=== PATIENT | male | born 1990 | race African-American/Black ===

== ENCOUNTER 2019-07-19 21:32 | Emergency (ER) | payer MEDICARE, OTHER ==
[~2019-07-19] VITALS: Ht 167.6 cm; Wt 81.6 kg
[~2019-07-19 21:32] MED LIST: CLIN150C14 PO; HYDR-3164 PO; SULF1TAB24 PO; TRAM-48 PO
[2019-07-19 21:44] VITALS: BP 161/113
--- NOTE | 2019-07-19 21:44 | PHYS DOC ---
Past Medical History Past Medical History: Other Additional Past Medical Histor: [facility] Past Surgical History: Other Additional Past Surgical Histo: hernia repair Alcohol Use: Occasionally Drug Use: None Adult General Chief Complaint Chief Complaint: SKIN PROBLEM HPI HPI Patient is a 28 year old male who presents to the ED today complaining of a pruritic rash to bilateral lower extremities that he noted 2 days ago after working in the yard. Review of Systems Review of Systems Constitutional: Denies fever or chills [] Musculoskeletal: Denies back pain or joint pain [] Integument: Reports pruritic rash to bilateral lower extremities Neurologic: Denies headache, focal weakness or sensory changes [] All other systems were reviewed and found to be within normal limits, except as documented in this note. Allergies Allergies Allergies Coded Allergies Type Severity Reaction Last Updated Verified No Known Drug Allergies 07/05/16 No Physical Exam Physical Exam Constitutional: Well developed, well nourished, no acute distress, non-toxic appearance. [] Skin: Warm, dry, bilateral lower extremities with mild amount of erythematous papular rash suspicious of insect bites Back: No tenderness, no CVA tenderness. [] Extremities: No tenderness, no cyanosis, no clubbing, ROM intact, no edema. [] Neurologic: Alert and oriented X 3, normal motor function, normal sensory function, no focal deficits noted. [] Psychologic: Affect normal, judgement normal, mood normal. [] EKG EKG [] Radiology/Procedures Radiology/Procedures [] Course & Med Decision Making Course & Med Decision Making Pertinent Labs and Imaging studies reviewed. (See chart for details) This is a 28-year-old male patient who presents to the ED today with a pruritic rash to bilateral lower extremities that began 2 days ago after working in the yard, rash suspicious of insect bites. Discharged with instructions to use [id number] Benadryl and hydrocortisone cream. Follow-up with PCP in 1-2 weeks as needed. Dragon Disclaimer Dragon Disclaimer This electronic medical record was generated, in whole or in part, using a voice recognition dictation system. Departure Departure Impression: Primary Impression: Insect bite Disposition: 01 HOME, SELF-CARE Condition: STABLE Referrals: NO PCP (PCP) JANNETTE ENNIS MD Follow-up in 2 weeks with your own doctor or the provided chinese instructor Patient Instructions: Insect Bite, [id number] Additional Instructions: You were seen in the emergency room for a rash, this rash appears to be insect bites. Use [id number] hydrocortisone cream, take Benadryl as well for the rash. You can follow-up with your own doctor in 2 weeks as needed. Problem Qualifiers Primary Impression: Insect bite Encounter type: initial encounter Site of insect bite: unspecified site Qualified Codes: W57.XXXA - Bitten or stung by nonvenomous insect and other nonvenomous arthropods, initial encounter PEPITO WETZEL APRN Jul 19, 2019 21:44
== END 2019-07-19 21:58 | disposition home or self-care (01) ==
LOC: ER 21:32
DX: S80.862A Insect bite (nonvenomous), left lower leg, initial encounter (principal); S80.861A Insect bite (nonvenomous), right lower leg, initial encounter; W57.XXXA Bitten or stung by nonvenomous insect and other nonvenomous arthropods, initial encounter; Y93.89 Activity, other specified; Y92.89 Other specified places as the place of occurrence of the external cause; Y99.8 Other external cause status
CPT/HCPCS: 99281

== ENCOUNTER 2019-09-01 23:58 | Emergency (ER) | payer OTHER ==
[~2019-09-01] VITALS: Ht 167.6 cm; Wt 81.6 kg
[2019-09-02 00:20] VITALS: BP 142/75
[2019-09-02] MEDS ORDERED: ORPHENADRINE CITRATE 60 MG/2 ML VIAL. IM ONE (01:00)
[2019-09-02] MEDS ORDERED: KETOROLAC 30 MG/ML VIAL. IM ONE (01:00)
[2019-09-02] MEDS ORDERED: IBUP-1027 PO (01:01)
[2019-09-02] MEDS ORDERED: ORPH100T PO (01:01)
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
== END 2019-09-02 01:11 | disposition home or self-care (01) ==
LOC: ER 23:58
DX: M54.6 Pain in thoracic spine (principal); M54.5 Low back pain; V49.9XXA Car occupant (driver) (passenger) injured in unspecified traffic accident, initial encounter; Z98.890 Other specified postprocedural states; Z72.89 Other problems related to lifestyle; T14.8XXA Other injury of unspecified body region, initial encounter; Y93.I9 Activity, other involving external motion; Y92.9 Unspecified place or not applicable; Y99.8 Other external cause status
CPT/HCPCS: 96372; 99284; J1885; J2360

== ENCOUNTER 2019-09-23 23:02 | Emergency (ER) | payer OTHER ==
[~2019-09-23] VITALS: Ht 167.6 cm; Wt 81.6 kg
[~2019-09-23 23:02] MED LIST changes: +IBUP-1027 PO; +ORPH100T PO
[2019-09-23 23:40] VITALS: BP 153/101
[2019-09-23] MEDS ORDERED: KETOROLAC 30 MG/ML VIAL. IM ONE (23:45)
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
== END 2019-09-24 00:45 | disposition home or self-care (01) ==
LOC: ER 23:02
DX: M54.5 Low back pain (principal); M54.6 Pain in thoracic spine; G89.11 Acute pain due to trauma; Z98.890 Other specified postprocedural states; V49.88XA Car occupant (driver) (passenger) injured in other specified transport accidents, initial encounter; Y93.89 Activity, other specified; Y92.488 Other paved roadways as the place of occurrence of the external cause; Y99.8 Other external cause status
CPT/HCPCS: 72220; 96372; 99284; J1885

== ENCOUNTER 2019-09-30 05:55 | Emergency (ER) | payer OTHER ==
[~2019-09-30] VITALS: Ht 167.6 cm; Wt 81.6 kg
[2019-09-30 05:55] VITALS: BP 153/60
[2019-09-30] MEDS ORDERED: LIDOCAINE 1%/EPI 1:100,000 20 ML VIAL. ONE (06:25)
[2019-09-30] MEDS ORDERED: SULF1TAB24 PO (06:35)
[2019-09-30] MEDS ORDERED: ACET-704 PO (06:35)
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
== END 2019-09-30 06:48 | disposition home or self-care (01) ==
LOC: ER 05:55
DX: L02.31 Cutaneous abscess of buttock (principal); Z98.890 Other specified postprocedural states
CPT/HCPCS: 10060; 99283